=== PATIENT | female | born 1995 | race Caucasian/White ===

== ENCOUNTER 2018-02-01 15:45 | Emergency (ER) | payer BC, OTHER ==
[~2018-02-01] VITALS: Ht 165.1 cm; Wt 59.0 kg
[~2018-02-01 15:45] MED LIST: CODACEE120 PO; CRUTCH2 USE
[2018-02-01] MEDS ORDERED: Veetids 500500 MG PO (16:48)
== END 2018-02-01 17:02 | disposition home or self-care (01) ==
LOC: ER 15:45
DX: K08.89 Other specified disorders of teeth and supporting structures (principal)
CPT/HCPCS: 99282

== ENCOUNTER 2018-03-07 12:06 | Emergency (ER) | payer BC, OTHER ==
[~2018-03-07 12:06] MED LIST changes: +Veetids 500500 MG PO
== END 2018-03-07 13:40 | disposition left against medical advice (07) ==
LOC: ER 12:06
DX: Z53.21 Procedure and treatment not carried out due to patient leaving prior to being seen by health care provider (principal)

== ENCOUNTER → 2018-12-16 | Outpatient (CLI) | payer BC, OTHER | END | disposition home or self-care (01) | LOC: LAB EV 14:53 → LAB SHORT 14:53 | DX: N39.0 Urinary tract infection, site not specified (principal) | CPT/HCPCS: 87086 ==

== ENCOUNTER → 2019-04-05 | Outpatient (CLI) | payer BC, OTHER | END | disposition home or self-care (01) | LOC: LAB EV 15:15 → LAB SHORT 15:15 | DX: L02.412 Cutaneous abscess of left axilla (principal) | CPT/HCPCS: 87070; 87075; 87077; 87186; 87205 ==

== ENCOUNTER → 2019-10-05 | Outpatient (CLI) | payer BC, OTHER | END | disposition home or self-care (01) | LOC: LAB SHORT 11:15 → PLD 11:15 | DX: D22.5 Melanocytic nevi of trunk (principal) | CPT/HCPCS: 88305 ==

== ENCOUNTER → 2020-03-12 | Outpatient (CLI) | payer BC, OTHER | END | disposition home or self-care (01) | LOC: LAB SHORT 14:52 → LAB EV 14:52 | DX: R05 Cough (principal); Z20.828 Contact with and (suspected) exposure to other viral communicable diseases | CPT/HCPCS: U0003 ==

== ENCOUNTER → 2020-07-04 | Outpatient (CLI) | payer BC, OTHER | END | disposition home or self-care (01) | LOC: LAB 18:44 → LAB SHORT 18:44 | DX: Z09 Encounter for follow-up examination after completed treatment for conditions other than malignant neoplasm (principal); Z86.14 Personal history of Methicillin resistant Staphylococcus aureus infection | CPT/HCPCS: 87081 ==

== ENCOUNTER → 2020-08-01 | Outpatient (CLI) | payer BC, OTHER | END | disposition home or self-care (01) | LOC: LAB 17:46 → LAB SHORT 17:46 | DX: Z09 Encounter for follow-up examination after completed treatment for conditions other than malignant neoplasm (principal); Z86.14 Personal history of Methicillin resistant Staphylococcus aureus infection | CPT/HCPCS: 87081 ==

== ENCOUNTER 2021-01-05 16:45 | Inpatient (IN) | payer BC, OTHER ==
[~2021-01-05] VITALS: Ht 167.6 cm; Wt 70.5 kg
[2021-01-05] MEDS ORDERED: PRENATAL TABLE1 EAC2 PO (17:42)
[2021-01-05 17:57] LABS: BASOPHILS ABSOLUTE AUTO 0.05 K/mm3 (0.00-0.23); BASOPHILS PERCENT AUTO 1 % (0-2); EOSINOPHILS ABSOLUTE AUTO 0.01 K/mm3 (0.00-0.68); EOSINOPHILS PERCENT AUTO 0 % (0-6); Hematocrit 34.9 % (33.0-51.0); Hemoglobin 11.8 g/dL (11.5-16.0); IMMATURE GRAN ABSOLUTE AUTO 0.03 K/mm3 (0.00-0.10); IMMATURE GRAN PERCENT AUTO 0 % (0-1); LYMPHOCYTES ABSOLUTE AUTO 1.61 K/mm3 (0.84-5.20); LYMPHOCYTES PERCENT AUTO 16 % (21-46); MONOCYTES ABSOLUTE AUTO 0.69 K/mm3 (0.16-1.47); MONOCYTES PERCENT AUTO 7 % (4-13); Mean Corpuscular HGB 28.8 pg (26.0-34.0); Mean Corpuscular HGB Conc 33.8 g/dL (31.5-36.5); Mean Corpuscular Volume 85 fL (80-100); Mean Platelet Volume 11.6 fL (9.1-12.4); NEUTROPHILS ABSOLUTE AUTO 7.72 K/mm3 (1.96-9.15); NEUTROPHILS PERCENT AUTO 76 % (41-73); Platelet Count 252 K/mm3 (150-400); RDW Coefficient Variation 13.2 % (11.7-14.2); RDW Standard Deviation 40.5 fL (35.1-46.3); White Blood Cell Count 10.11 K/mm3 (4.00-11.30)
[2021-01-05 18:05] LABS: Influenza A, PCR NEGATIVE (NEGATIVE); Influenza B, PCR NEGATIVE (NEGATIVE); Resp Syncytial Virus, PCR NEGATIVE (NEGATIVE); SARS-Cov-2 (COVID-19) PCR, MMC NEGATIVE (NEGATIVE)
[2021-01-05 19:18] LABS: U Amphetamine Screen Not Detected; U Barbituate Screen Not Detected; U Benzodiazapine Screen Not Detected; U Buprenorphine Screen Not Detected; U Cannabinoids Screen DETECTED; U Cocaine Screen Not Detected; U Methadone Screen Not Detected; U Methamphetamine Screen Not Detected; U Opiates Screen Not Detected; U Oxycodone Screen Not Detected; U Phencyclidine Screen Not Detected; U Propoxyphene Screen Not Detected
[2021-01-06 05:28] LABS: BASOPHILS ABSOLUTE AUTO 0.04 K/mm3 (0.00-0.23); BASOPHILS PERCENT AUTO 0 % (0-2); EOSINOPHILS ABSOLUTE AUTO 0.02 K/mm3 (0.00-0.68); EOSINOPHILS PERCENT AUTO 0 % (0-6); Hematocrit 33.1 % (33.0-51.0); Hemoglobin 11.4 g/dL (11.5-16.0); IMMATURE GRAN ABSOLUTE AUTO 0.05 K/mm3 (0.00-0.10); IMMATURE GRAN PERCENT AUTO 0 % (0-1); LYMPHOCYTES ABSOLUTE AUTO 1.31 K/mm3 (0.84-5.20); LYMPHOCYTES PERCENT AUTO 10 % (21-46); MONOCYTES ABSOLUTE AUTO 0.81 K/mm3 (0.16-1.47); MONOCYTES PERCENT AUTO 6 % (4-13); Mean Corpuscular HGB 29.8 pg (26.0-34.0); Mean Corpuscular HGB Conc 34.4 g/dL (31.5-36.5); Mean Corpuscular Volume 87 fL (80-100); Mean Platelet Volume 11.4 fL (9.1-12.4); NEUTROPHILS ABSOLUTE AUTO 10.79 K/mm3 (1.96-9.15); NEUTROPHILS PERCENT AUTO 83 % (41-73); Platelet Count 204 K/mm3 (150-400); RDW Coefficient Variation 13.2 % (11.7-14.2); RDW Standard Deviation 40.8 fL (35.1-46.3); Red Blood Cell Count 3.82 M/mm3 (3.80-5.20); White Blood Cell Count 13.02 K/mm3 (4.00-11.30)
--- NOTE | 2021-01-06 05:40 | NUR ---
RN DISCUSSED UTOX COLLECTION FOR AND EXPLAINED THAT WE ARE COLLECTING BECAUSE OF MATERNAL SUBSTANCE USE. PT ADMITS TO USING MARIJUANA AND METHAMPHETAMINE BUT DENIES OPIATE USE. PT EXPRESSED CONCERN FOR BEING "ABLE TO KEEP MY BABY". RN DISCUSSED MANDATORY REPORTING TO [facility] AND THAT THEY WOULD LIKELY BE IN CONTACT WITH HER. PT EXPRESSED WILLINGNESS TO GET ENROLLED IN SUBSTANCE ABUSE RECOVERY PROGRAM AND IDENTIFIED HER FATHER AND STEP-MOM SUPPORT FOR HER AFTER DISCHARGE.
--- NOTE | 2021-01-06 17:09 | NUR ---
PT LEFT THE UNIT TO GET FOOD AWHILE AGO ([phone]) , JUST CAME BACK, NOT KNOWING WHAT ROOM SHE WAS IN, WAS IN HER ROOM FOR ABOUT 30-45 SEC AND LEFT THE FLOOR AGAIN. DIDNT ASK ABOUT THE BABY
--- NOTE | 2021-01-06 17:18 | NUR ---
PT JUST CAME BACK, STILL HAD DIFFICULTY FINDING HER ROOM. WENT IN HER ROOM, NEVER ASKED ABOUT BABY, HAD A HAND FULL OF FOOD AND DRINK,
--- NOTE | 2021-01-06 17:45 | NUR ---
MOM JUST CAME OUT TO GET BABY HAS BEEN IN THE ROOM SINCE LAST NOTE BY ME.
--- NOTE | 2021-01-07 08:57 | NUR ---
RN/LC ROUNDED TO HELP W/ . PT STATES THAT IS GOING WELL. INSTRUCTED PT ON CORRECT POSITIONING, LATCHING, NIPPLE SHAPE AFTER FEEDS, AND FREQUENCY OF FEEDINGS. PT VERBALIZED UNDERSTANDING, DENIES QUESTIONS OR CONCERNS. FURTHER LC OFFERED IF PT DESIRES.
[2021-01-07] MEDS ORDERED: IBUP800 PO (10:03)
--- NOTE | 2021-01-07 13:03 | NUR ---
PT D/C HOME CPS SAFETY PLAN IN PLACE, BANDS MATCHED WITH NB AND D/C INSTRUCTIONS REVIEWED, PT INSTRUCTED TO RETURN TO [facility] FOR PPFU APPOINTMENT, AND TO [facility] 2 WEEK APPOINTMENT WITH . PT CALLED [facility] AND PLANNING ON HAVING ASSESMENT ONCE D/C.
--- NOTE | 2021-01-11 15:45 | NUR ---
LATE ENTER ORDER INITIATE PROTOCOL EPIDURAL PRE PER EMR 01/05/21 @ 1908 Katie CUEVAS RN
== END 2021-01-07 13:10 | disposition home or self-care (01) | DRG 806 ==
LOC: OBS 16:45 → BC 16:45 → OBS 17:06 → BC 17:08
PROVIDERS: ADMIT Nurse Practitioner Obstetrics & Gynecology
PROC: 10E0XZZ Delivery of Products of Conception, External Approach (ICD-10-PCS; principal; 2021-01-05)
PROC: 00HU33Z Insertion of Infusion Device into Spinal Canal, Percutaneous Approach (ICD-10-PCS; 2021-01-05)
PROC: 3E0R3BZ Introduction of Anesthetic Agent into Spinal Canal, Percutaneous Approach (ICD-10-PCS; 2021-01-05)
DX: O99.344 Other mental disorders complicating childbirth (principal); O99.324 Drug use complicating childbirth; Z37.0 Single live birth; F15.90 Other stimulant use, unspecified, uncomplicated; Z3A.37 37 weeks gestation of pregnancy; Z20.822 Contact with and (suspected) exposure to COVID-19; F32.9 Major depressive disorder, single episode, unspecified; F41.9 Anxiety disorder, unspecified; Z79.899 Other long term (current) drug therapy
CPT/HCPCS: 0241U; 36415; 51702; 59025; 85025; 86850; 86900; 86901; 88307; A9270; G0480; J0290; J1885; J2001; J2210; J2590; J3010; J7120

== ENCOUNTER 2022-06-13 23:52 | Emergency (ER) | payer BC, OTHER ==
[~2022-06-13] VITALS: Ht 170.2 cm; Wt 59.0 kg
[~2022-06-13 23:52] MED LIST changes: +IBUP800 PO; +PRENATAL TABLE1 EAC2 PO
== END 2022-06-14 03:00 | disposition home or self-care (01) ==
LOC: ER 23:52
DX: M79.672 Pain in left foot (principal); M79.89 Other specified soft tissue disorders; Z79.899 Other long term (current) drug therapy
CPT/HCPCS: 73630

== ENCOUNTER → 2022-08-29 | Outpatient (CLI) | payer BC, OTHER | END | disposition home or self-care (01) | LOC: LAB 18:09 → LAB SHORT 18:09 | DX: R35.0 Frequency of micturition (principal) | CPT/HCPCS: 87086 ==

== ENCOUNTER 2023-12-18 22:42 | Emergency (ER) | payer BC, OTHER ==
[~2023-12-18] VITALS: Ht 167.6 cm; Wt 59.0 kg
[2023-12-18] MEDS ORDERED: RX Prepack 2 Sprays Naloxone HCL 4 MG/SPRAY UD ONE (23:50)
[2023-12-19 01:09] VITALS: BP 128/80
== END 2023-12-19 01:10 | disposition home or self-care (01) ==
LOC: ER 22:42
DX: T40.411A Poisoning by fentanyl or fentanyl analogs, accidental (unintentional), initial encounter (principal); F15.90 Other stimulant use, unspecified, uncomplicated
CPT/HCPCS: 93005; 93010; 99284-25; A9270

== ENCOUNTER → 2024-11-15 | Outpatient (CLI) | payer OTHER ==
[2024-11-23 15:45] LABS: HPV GENOTYPE 16 BY TMA Not Detected; HPV GENOTYPE 18/45 BY TMA Not Detected; HPV HIGH RISK BY TMA Detected; HPV SOURCE Cervical; HPVG SOURCE Cervical
== END ==
LOC: LAB SHORT 17:17 → LAB 17:17
PROVIDERS: Physician Assistant
DX: N87.1 Moderate cervical dysplasia (principal)
CPT/HCPCS: 87624; 87625; G0123

== ENCOUNTER 2025-08-12 06:07 | Inpatient (IN) | payer OTHER ==
[2025-08-12] VITALS (18 sets, daily range): BP systolic 105–174; BP diastolic 66–104
[~2025-08-12] VITALS: Ht 170.2 cm; Wt 72.7 kg
[2025-08-12] MEDS ORDERED: CeFAZolin Sodium 2,000 MG in NS 100 ML IV SCH (07:50)
[2025-08-12 08:22] LABS: BASOPHILS ABSOLUTE AUTO 0.03 K/mm3 (0.00-0.23); BASOPHILS PERCENT AUTO 0 % (0-2); EOSINOPHILS ABSOLUTE AUTO 0.01 K/mm3 (0.00-0.68); EOSINOPHILS PERCENT AUTO 0 % (0-6); Hematocrit 28.9 % (33.0-51.0); Hemoglobin 9.7 g/dL (11.5-16.0); IMMATURE GRAN ABSOLUTE AUTO 0.06 K/mm3 (0.00-0.10); IMMATURE GRAN PERCENT AUTO 1 % (0-1); LYMPHOCYTES ABSOLUTE AUTO 1.78 K/mm3 (0.84-5.20); LYMPHOCYTES PERCENT AUTO 17 % (21-46); MONOCYTES ABSOLUTE AUTO 0.63 K/mm3 (0.16-1.47); MONOCYTES PERCENT AUTO 6 % (4-13); Mean Corpuscular HGB Conc 33.6 g/dL (31.5-36.5); Mean Corpuscular Volume 82 fL (80-100); NEUTROPHILS ABSOLUTE AUTO 8.17 K/mm3 (1.96-9.15); NEUTROPHILS PERCENT AUTO 76 % (41-73); NRBC ABSOLUTE 0.00 K/mm3 (0.00-0.02); NRBC Auto 0.0 /100 WBC (0.0-0.2); Platelet Count 231 K/mm3 (150-400); RDW Coefficient Variation 14.3 % (11.7-14.2); RDW Standard Deviation 40.0 fL (35.1-46.3)
[2025-08-12] MEDS ORDERED: Morphine Sulfate/PF 1 MG/ML 10MLVIAL ONE (09:22)
[2025-08-12 09:31] LABS: Prothrombin Time Results 10.3 Sec (9.7-11.5)
[2025-08-12] MEDS ORDERED: Phenylephrine HCl 100 MCG/ML-NS 10MLSYR (1MG/10ML) ONE ×2 (09:55)
[2025-08-12] MEDS ORDERED: Oxytocin 10 Unit / ML Vial ONE (10:05)
[2025-08-12] MEDS ORDERED: Ketorolac Tromethamine 30mg Vial ONE (10:05)
[2025-08-12 10:07] LABS: pH Blood Venous 7.44 (7.34-7.37)
[2025-08-12 10:10] LABS: pH Blood Arterial 7.41 (7.35-7.45)
--- NOTE | 2025-08-12 10:22 | NUR ---
08/12/25 Jayro2 Krys Leal BABY BOY AT [id number]
[2025-08-12] MEDS ORDERED: Docusate Sodium/Senna 1 Tab PO PRN (10:45)
[2025-08-12] MEDS ORDERED: Magnesium Hydroxide Conc 10 ML UDC PO PRN (10:50)
[2025-08-12] MEDS ORDERED: OXYTOCIN/RINGER'S LACTATE 16.66666666 ML IV SCH (10:55)
[2025-08-12] MEDS ORDERED: Carboprost Tromethamine 250 MCG/ML 1ML Amp IM PRN (10:55)
[2025-08-12] MEDS ORDERED: Ondansetron HCl 2 MG / ML 2ML Vial IV PRN (11:00)
[2025-08-12] MEDS ORDERED: Oxytocin 10 Unit / ML Vial IM ONE (11:00)
[2025-08-12] MEDS ORDERED: Methylergonovine Maleate 0.2MG / ML 1ML Amp IM PRN (11:00)
[2025-08-12] MEDS ORDERED: Ketorolac Tromethamine 30mg Vial IV SCH (11:00)
[2025-08-12] MEDS ORDERED: Tranexamic Acid 100 ML IV PRN (11:30)
--- NOTE | 2025-08-12 12:24 | NUR ---
REASSUMED CARE OF PT AFTER PACU IN ROOM AT 1120
[2025-08-12] MEDS ORDERED: Methylergonovine Maleate 0.2MG / ML 1ML Amp XX ONE (12:50)
[2025-08-12 14:44] LABS: U Amphetamine Screen DETECTED; U Barbituate Screen Not Detected; U Benzodiazapine Screen Not Detected; U Buprenorphine Screen Not Detected; U Cannabinoids Screen Not Detected; U Cocaine Screen Not Detected; U Methadone Screen Not Detected; U Methamphetamine Screen DETECTED; U Opiates Screen Not Detected; U Oxycodone Screen Not Detected; U Phencyclidine Screen Not Detected
[2025-08-12] MEDS ORDERED: Ketorolac Tromethamine 30mg Vial IV PRN (16:00)
[2025-08-12 17:24] LABS: BASOPHILS ABSOLUTE AUTO 0.03 K/mm3 (0.00-0.23); BASOPHILS PERCENT AUTO 0 % (0-2); EOSINOPHILS ABSOLUTE AUTO 0.01 K/mm3 (0.00-0.68); EOSINOPHILS PERCENT AUTO 0 % (0-6); Hematocrit 31.4 % (33.0-51.0); Hemoglobin 10.3 g/dL (11.5-16.0); IMMATURE GRAN ABSOLUTE AUTO 0.07 K/mm3 (0.00-0.10); IMMATURE GRAN PERCENT AUTO 1 % (0-1); LYMPHOCYTES ABSOLUTE AUTO 1.28 K/mm3 (0.84-5.20); LYMPHOCYTES PERCENT AUTO 9 % (21-46); MONOCYTES ABSOLUTE AUTO 0.75 K/mm3 (0.16-1.47); MONOCYTES PERCENT AUTO 5 % (4-13); Mean Corpuscular HGB Conc 32.8 g/dL (31.5-36.5); Mean Corpuscular Volume 82 fL (80-100); NEUTROPHILS ABSOLUTE AUTO 12.24 K/mm3 (1.96-9.15); NEUTROPHILS PERCENT AUTO 85 % (41-73); NRBC ABSOLUTE 0.00 K/mm3 (0.00-0.02); NRBC Auto 0.0 /100 WBC (0.0-0.2); Platelet Count 216 K/mm3 (150-400); RDW Coefficient Variation 14.3 % (11.7-14.2); RDW Standard Deviation 41.1 fL (35.1-46.3)
--- NOTE | 2025-08-12 17:48 | NUR ---
PT ATE A SMALL AMOUNT OF DINNER TRAY AND REPORTED THAT IT MADE HER PUKE. SHE DECLINES ANY NAUSEA MEDS AT THIS TIME. SHE ALSO REPORTS SHE IS CHUGGING HER WATER BECAUSE SHE IS THIRSTY AND TENDS TO PUKE AFTER THAT. PT HAS SLEPT MOST OF THE SHIFT SINCE HER C/S. PAIN AND BLEEDING WNL.
[2025-08-12 17:50] LABS: Fibrinogen 385.0 mg/dL (170-430); Prothrombin Time Results 10.1 Sec (9.7-11.5)
[2025-08-13 00:05] VITALS: BP 122/60
[2025-08-13 04:08] VITALS: BP 106/55
[2025-08-13 07:12] LABS: BASOPHILS ABSOLUTE AUTO 0.03 K/mm3 (0.00-0.23); BASOPHILS PERCENT AUTO 0 % (0-2); EOSINOPHILS ABSOLUTE AUTO 0.06 K/mm3 (0.00-0.68); EOSINOPHILS PERCENT AUTO 1 % (0-6); Hematocrit 26.6 % (33.0-51.0); Hemoglobin 8.7 g/dL (11.5-16.0); IMMATURE GRAN ABSOLUTE AUTO 0.04 K/mm3 (0.00-0.10); IMMATURE GRAN PERCENT AUTO 0 % (0-1); LYMPHOCYTES ABSOLUTE AUTO 1.96 K/mm3 (0.84-5.20); LYMPHOCYTES PERCENT AUTO 17 % (21-46); MONOCYTES ABSOLUTE AUTO 0.64 K/mm3 (0.16-1.47); MONOCYTES PERCENT AUTO 6 % (4-13); Mean Corpuscular HGB Conc 32.7 g/dL (31.5-36.5); Mean Corpuscular Volume 84 fL (80-100); NEUTROPHILS ABSOLUTE AUTO 8.62 K/mm3 (1.96-9.15); NEUTROPHILS PERCENT AUTO 76 % (41-73); NRBC ABSOLUTE 0.00 K/mm3 (0.00-0.02); NRBC Auto 0.0 /100 WBC (0.0-0.2); Platelet Count 235 K/mm3 (150-400); RDW Coefficient Variation 14.4 % (11.7-14.2); RDW Standard Deviation 42.7 fL (35.1-46.3)
[2025-08-13 08:42] VITALS: BP 114/65
[2025-08-13] MEDS ORDERED: Sod Ferric Gluc Complx/Sucrose 125 MG in NS 100 ML IV SCH (09:00)
[2025-08-13] MEDS ORDERED: Polyethylene Glycol 3350 17 gm PO SCH (09:00)
[2025-08-13] MEDS ORDERED: Prenatal Vit/FE Fumarate/FA 1 Tab PO SCH (09:00)
--- NOTE | 2025-08-13 09:44 | NUR ---
PT SLEEPING SO FAR INTO THIS SHIFT. WHEN RN ENTERED ROOM WITH PROVIDER, NB WAS FUSSING AND NEITHER MOM OR DAD WOKE UP TO CRY. MOM WAS DIFFICULT TO AROUSE BUT WILL WAKE WITH VOICE AND TOUCH. REPORTS PAIN IS WELL CONTROLLED, BLEEDING MINIMAL.
[2025-08-13 12:21] VITALS: BP 111/64
[2025-08-13 17:28] VITALS: BP 116/68
[2025-08-13 20:07] VITALS: BP 117/69
--- NOTE | 2025-08-13 20:15 | NUR ---
SHIFT ASSESSMENT PT SLEEPING DURING ASSESSMENT, WOKE FOR FUNDAL RUB, INCISION ASSESSMENT AND REMOVAL OF PRESSURE DRESSING. NO ACTIVE DRAINING TO INCISION AT THIS TIME. PT IMMEDIATELY BACK TO SLEEP FOLLOWING COMPLETION OF ASSESSMENT. DAD TO SHOWER WHILE THIS NURSE IN ROOM PROVIDING CARE. IN CRIB SLEEPING.
[2025-08-14] VITALS (7 sets, daily range): BP systolic 120–155; BP diastolic 65–94
[2025-08-14 08:51] LABS: HIV 1,2 COMBO ANTIGEN/ANTIBODY Negative (Negative)
[2025-08-14 09:16] LABS: HEPATITIS B SURFACE ANTIBODY <3.10 IU/L
[2025-08-14 09:50] LABS: HBV CORE ANTIBODIES,TOTAL Negative (Negative)
--- NOTE | 2025-08-14 10:21 | NUR ---
0900 WAS NOTIFIED OF EPDS SCORE OF 13, AWARE THAT CASE MANAGEMENT WILL SEE HER TODAY
[2025-08-14 10:54] LABS: RPR SCREEN with Reflex Reactive (Nonreactive)
[2025-08-14 10:55] LABS: RPR TITER 1:2
[2025-08-15 07:33] VITALS: BP 143/78
[2025-08-15 12:32] VITALS: BP 130/87
[2025-08-15] MEDS ORDERED: FLU VACC TS2025-26(6MOS UP)/PF 45 MCG/0.5 ML SYRINGE IM SCH (14:10)
[2025-08-15 16:40] VITALS: BP 125/75
--- NOTE | 2025-08-15 18:35 | NUR ---
08/15/25 1530 PT GIVEN DC INSTRUCTIONS WRITTEN AND VERBAL AND SHE VERBALIZED UNDERSTANDING. EXTENSIVE REVIEW ON NO CO SLEEPING AND IMPORTANCE OF SETTING AN ALARM FOR FEEDS Q3 HOURS. PT WILL BE GOING HOME TO [facility] RESISDENTIAL HOME WITH HER BABY, FOB LEFT EARLIER TO MEET WITH HIS PO AND PT STATES THAT HE WAS PUT INTO RETIREMENT, UNSURE OF SPECIFICS OF THIS SITUATION, BUT HER IS NOT HERE FOR TEACHING. PTS MOTHER HAS BEEN HERE A FEW TIMES TODAY AND WILL HELP TO TRANSPORT SOME OF HER THINGS TO [facility], OR BRING THEM HERE FOR HER. PLAN IS FOR [facility] RESIDENT TO ACTUALLY DRIVE THE PT AND BABY TO [facility] AND GET THEM SETTLED. [facility] TO GO FISH AND GAME WARDEN THE RX FOR HER PAIN MEDS FROM [facility]. PT HAS SHOWN THAT SHE CAN FEED THE BABY WHEN NEEDED, YET NEEDS A LITTLE EXTRA ENCOURAGEMENT AND HELP WITH BURPING AND CHANGING DIAPERS. ENCOURAGED PT TO CALL TOMORROW TO MAKE BOTH HER AND THE BABYS 2 WEEK FOLLOW UP APPOINTMENTS AND TO COME HER ETO FBP ON THURSDAY AT 10AM FOR HER FBP FOLLOW UP
[2025-08-17 01:48] LABS: TREPONEMA PALLIDUM AB BY TP-PA Reactive (Non Reactive)
== END 2025-08-15 16:50 | disposition home or self-care (01) | DRG 787 ==
LOC: BC 06:07 → OBS 06:07 → BC 06:08 → OBS 07:51 → BC 07:53
PROVIDERS: Family Medicine; Pathology Anatomic Pathology & Clinical Pathology; ADMIT Obstetrics & Gynecology
PROC: 10D00Z1 Extraction of Products of Conception, Low, Open Approach (ICD-10-PCS; principal; 2025-08-12 10:00)
DX: O32.1XX0 Maternal care for breech presentation, not applicable or unspecified (principal); D62 Acute posthemorrhagic anemia; O98.42 Viral hepatitis complicating childbirth; O99.324 Drug use complicating childbirth; B19.20 Unspecified viral hepatitis C without hepatic coma; F15.90 Other stimulant use, unspecified, uncomplicated; Z3A.37 37 weeks gestation of pregnancy; Z37.0 Single live birth
CPT/HCPCS: 36415; 59025; 76815; 82803; 85025; 85384; 85610; 85730; 86592; 86593; 86704; 86780; 86850; 86900; 86901; 86923; 87340; 87389; 88307; 99214; A9270; J0456; J0690; J1885; J2210; J2274; J2371; J2405; J2590; J2704; J2916; J7050; J7120